=== PATIENT | female | born 1975 | race Caucasian/White ===

== ENCOUNTER → 2019-11-12 | Outpatient (CLI) | payer OTHER ==
--- NOTE | 2019-11-14 10:24 | REP ---
MRI left ankle without contrast: History: Rule out anterior talofibular ligament tear. Injury 14 weeks ago while running. No comparison radiographs or other imaging. Pain in the left ankle and joints of the left foot. Technique: Axial, coronal and sagittal imaging planes utilized. T1 and T2-weighted scans were obtained in the usual fashion with without fat saturation. MRI findings: Cortical and medullary bone signal intensity are normal. There is no evidence of occult fracture or marrow edema. The talar dome and tibial plafond appear intact. No osteochondral defect lesion is seen. There is a small amount of ankle joint fluid. No other joint effusion is seen. No juxtaarticular cyst or mass is seen. Plantar fascia is smooth. Achilles tendon is normal in caliber, course and signal intensity. No ligament disruption is seen. The anterior talofibular ligament appears intact. Posterior talofibular ligament and calcaneofibular ligaments are unremarkable. The anterior and posterior inferior tibiofibular ligaments appear intact. The deltoid ligamentous complex is unremarkable. There is no evidence of flexor or extensor tendinopathy. Impression: Negative MRI study of the left ankle. Electronically Signed by Dio Ruth MD 11/14/2019 06:17 P
== END ==
LOC: M RAD 10:38
PROVIDERS: ATTEND Orthopaedic Surgery
DX: M25.572 Pain in left ankle and joints of left foot (principal)

== ENCOUNTER 2024-08-17 09:22 | Day surgery (SDC) | payer OTHER ==
[~2024-08-17] VITALS: Ht 170.2 cm; Wt 60.0 kg
[~2024-08-17 09:22] MED LIST: ASHW300C2 PO; NS 1,000 ML IV ONE
[2024-08-17] MEDS ORDERED: LIDOCAINE 2% 100MG/5ML SDV (FOR ANES.) As Ordered ONE (11:52)
[2024-08-17] MEDS ORDERED: propofoL 200 MG/20 ML VIAL As Ordered ONE (11:52)
[2024-08-17 11:56] VITALS: TEMP 98.2
[2024-08-17 12:15] VITALS: BP 132/73; O2SAT 98
== END 2024-08-17 12:26 | disposition home or self-care (01) ==
LOC: M OPP 09:22
PROVIDERS: ATTEND Internal Medicine Gastroenterology
DX: Z12.11 Encounter for screening for malignant neoplasm of colon (principal); K64.0 First degree hemorrhoids; Z79.899 Other long term (current) drug therapy